=== PATIENT | female | born 1965 | race Caucasian/White ===

== ENCOUNTER 2022-05-17 13:07 | Emergency (ER) | payer BC, SELFPAY ==
--- NOTE | ~2022-05-17 | US_ITS ---
EXAMINATION: US pelvic complete w TV DATE: 05/17/2022 15:33 INDICATION: perimeno, abml bleeding, Hx of fibroids, LLQ pain TECHNIQUE: Multiple transabdominal and endovaginal sonographic images of the pelvis were obtained. COMPARISON: None. FINDINGS: Uterus: 9 x 6.6 x 5.3 cm. Endometrial complex measures 0.4 cm. Multiple small uterine fibroids, the l argest measures 1.6 cm. Right Ovary: 1.9 x 0.9 x 1.1 cm. Vascular flow is present. Left Ovary: 3.8 x 3.6 x 2.5 cm. Vascular flow is present. 2.8 cm simple cyst. There is no free fluid in the pelvis. IMPRESSION: 1. Multiple small uterine fibroids. 2. 2.8 cm simple left ovarian cyst. Reviewed, dictated and finalized at location K.
[2022-05-17 13:21] VITALS: BP 121/71; PULSE 88; RESP 20; TEMP 36.2; O2SAT 99
[2022-05-17 14:42] LABS: Appearance Urine Slightly Cloudy (Clear); Basophils Percent Auto 0.6 % (0.2-1.2); Bilirubin Urine Negative (Negative); Blood Urine 3+ (Negative); Color Urine Yellow (Yellow); Eosinophils Absolute Auto 0.2 K/mm3 (0-0.3); Eosinophils Percent Auto 2.9 % (0-4.4); Glucose Urine UA Negative (Negative); Hematocrit 36.8 % (37.0-47.0); Hemoglobin 12.4 g/dL (12.0-15.0); Immature Granulocyte Absolute 0.01 K/mm3 (0.00-0.031); Immature Granulocyte Percent A 0.1 % (0-0.5); Ketones Urine Negative (Negative); Leukocyte Esterase Ur 1+ LEU/UL (Negative); Lymphocytes Absolute Auto 1.54 K/mm3 (0.9-3.2); Mean Corpuscular HGB Conc 33.7 g/dl (32-36); Mean Corpuscular Hemoglobin 31.2 pg (26-34); Mean Corpuscular Volume 92.7 fl (80-100); Mean Platelet Volume 10.6 fl (7.4-10.4); Monocytes Absolute Auto 0.4 K/mm3 (0.1-0.6); Monocytes Percent Auto 5.8 % (2.6-8.5); Neutrophils Absolute Auto 4.8 K/mm3 (1.3-6.7); Neutrophils Percent Auto 68.6 % (45.5-73.1); Nitrate Urine Negative (Negative); Platelet Count Result 249 k/mm3 (150-375); Protein Urine 1+ mg/dL (Negative); Red Blood Count 3.97 M/mm3 (4.2-5.4); Red Cell Distribution Width 12.8 % (11.5-14.5); Specific Grav Ur >= 1.030 (1.001-1.035); Urobilinogen Urine 0.2 mg/dL (<2.0); pH Urine 5.5 (5.0-9.0)
--- NOTE | 2022-05-17 14:45 | ED.FEMALEGU ---
HPI - Female Genitourinary General Chief complaint: Vaginal Bleeding Stated complaint: heavy vag bleeding Time Seen by Provider: 05/17/22 14:07 Source: patient Mode of arrival: ambulatory Limitations: no limitations History of Present Illness HPI Narrative: Patient is a 56-year-old female who presents the ED with report of abnormal vaginal bleeding. Patient reports she is in the perimenopausal phase. She has been having irregular menstrual cycles. Last had a cycle around 04/01. Started having vaginal bleeding 2 days ago. Stated yesterday was heavy bleeding, going through a pad every 1-2 hours. She called her OBGYN and was Rx'd a 10 day course of Medroxyprogesterone. Patient only took 1 pill last night. Today, she thought the bleeding was improved, but she reported having a few clots after prolonged period of sitting. She then decided to come to the ED. Patient reports some cramping in left lower quadrant. Has not taken anything for pain. Denies any fever, nausea, vomiting, urinary symptoms. Review of Systems Review of Systems: CONSTITUTIONAL: Denies fever, chills, or sweats. CARDIOVASCULAR: Denies chest pain. RESPIRATORY: Denies dyspnea. GASTROINTESTINAL: Reports LLQ cramping. Denies nausea, vomiting. GENITOURINARY: Reports vaginal bleeding with clots. Denies dysuria or hematuria. All systems reviewed & are unremarkable except as noted in HPI and below PMFSH Past Medical History Medical History Anxiety GERD (gastroesophageal reflux disease) Surgical History Surgical History (Updated 05/17/22 @ 14:54 by Mae Saldivar PA-C) No pertinent past surgical history Social History Social History (Updated 05/17/22 @ 14:54 by Mae Saldivar PA-C) Smoking status: Never smoker Exam Narrative: GENERAL: Well appearing, well-nourished, non-toxic, in no acute distress. HEAD: Normocephalic, atraumatic. NECK: Supple. No adenopathy, no masses. RESPIRATORY: Airway patent, respirations nonlabored. Clear to auscultation bilaterally, no rales, rhonchi, wheezing. CARDIOVASCULAR: Regular rate and rhythm without murmurs, rubs, or gallops. Peripheral pulses 2+ and equal bilaterally. ABDOMINAL: Soft, minimal TTP in LLQ, nondistended, no hepatosplenomegaly. Normoactive BS. PELVIC: Normal external genitalia. Some dark red bleeding in vaginal vault, easily removable with long q-tips. No clots present. Normal cervix. No significant CMT. No signs of hemorrhage or pooling of fluid. MUSCULOSKELETAL: Moves all extremities. Strength/ROM intact without gross deformities. SKIN: Warm, dry, normal color. No rashes. NEURO: A&O X3. Speech clear. Cranial nerves II-XII grossly intact. Steady gait. No ataxic movements. PSYCHIATRIC: Appropriate mood and affect. Normal interaction. Course Vital Signs Vital signs: Vital Signs Temperature 97.1 F L 05/17/22 13:21 Pulse Rate 88 05/17/22 13:21 Respiratory Rate 20 05/17/22 13:21 Blood Pressure 121/71 05/17/22 13:21 Pulse Oximetry 99 05/17/22 13:21 Oxygen Delivery Room Air 05/17/22 13:21 Temperature 97.1 F L 05/17/22 13:21 Pulse Rate 88 05/17/22 13:21 Respiratory Rate 20 05/17/22 13:21 Blood Pressure 121/71 05/17/22 13:21 Pulse Oximetry 99 05/17/22 13:21 Oxygen Delivery Room Air 05/17/22 13:21 MDM - Female Genitourinary MDM Narrative Medical decision making narrative: Patient presented to ED with heavy vaginal bleeding. Perimenopausal. Started on medroxyprogesterone yesterday by [employer]. Vital signs stable upon arrival and throughout ED stay. Hemoglobin stable at 12.4. No records to compare to. Laboratory evaluation otherwise unremarkable. UA with blood and only 7-9 WBC. Likely more contamination than infection. Patient without urinary symptoms. Culture will be sent. Ultrasound showing small fibroids and a left ovarian cyst. Pelvic exam revealed some dark red bleeding, but no pooling of blood. No signs of
[2022-05-17 14:48] LABS: RBC Urine >75 /hpf (0-2); Squamous Epithelial Cell Urine Few /hpf (Few)
[2022-05-17 14:50] LABS: Add Urine Microscopic? YES
[2022-05-17 14:51] LABS: Alanine Aminotransferase 25 U/L (6-35); Albumin Level 4.1 g/dL (3.5-5.1); Alkaline Phosphatase 86 U/L (38-126); Anion Gap 6 mmol/L (8-16); Aspartate Amino Transferase 24 U/L (14-36); Bilirubin,Total 0.3 mg/dL (0.2-1.3); Blood Urea Nitrogen 13 mg/dL (7-17); Calcium 9.1 mg/dL (8.4-10.2); Carbon Dioxide 28 mmol/L (22-30); Chloride 101 mmol/L (98-107); Estimated CRCL calculation 69 ml/min; Estimated Glomerular Filt Rate > 60; Glucose 117 mg/dL (65-110); Sodium 135 mmol/L (137-145)
== END 2022-05-17 17:24 | disposition home or self-care (01) ==
PROVIDERS: Physician Assistant; Emergency Provider Emergency Medicine; PCP Family Medicine
DX: N93.8 Other specified abnormal uterine and vaginal bleeding (principal); K21.9 Gastro-esophageal reflux disease without esophagitis; N83.292 Other ovarian cyst, left side; D25.9 Leiomyoma of uterus, unspecified
CPT/HCPCS: 36415; 76830; 76856; 80053; 81001; 85025; 87086; 87088; 87147; 99284

== ENCOUNTER 2022-05-28 01:27 | Day surgery (SDC) | payer BC, SELFPAY ==
[2022-05-26 15:03] VITALS: BMI 28.3
--- NOTE | 2022-05-26 15:04 | PC.NURSE ---
Report to the Outpatient Waiting Room, entrance under the green pavilion located off [facility], at time _1100_ on date _[id number]_. OR Time: _1pm_. - You and your visitor will be asked to self-screen and do not enter if you have any COVID symptoms. - Only one visitor and NO children visitors are allowed at this time. - The patient visitor is requested to leave or wait in car when not with patient due to restrictions. - A mask is required within the hospital. Patients may have clear liquids (water, carbonated beverages, clear teas, apple juice) until 3 hours prior to surgery with a maximum of 20 ounces. - No food from midnight until time of surgery Take the following medications with a SIP of water the morning of surgery: ____Escitalopram Medications to discontinue per physician ___None Date to take last dose Please no make-up, nail thai, hairspray, perfume, deodorant, or body powder the day of surgery. No jewelry (including any body piercings) or valuables the day of surgery, leave them at home. Please take a shower or bath the night before, or the morning of, surgery with an antibacterial soap. Wear comfortable, loose fitting clothing. - Jewelry must be removed prior to entering the operating room. Rings and piercings that are not removed may be cut off. - The hospital will not accept responsibility for valuables. - Please leave all valuables, including medications, at home the day of surgery. If you are going home after surgery, a licensed local bulk driver must drive you home. - NO public transportation without another adult. - We recommend that an adult stay with you for 24 hours following discharge. - We also recommend that you do not drive, make important decision, drink alcoholic beverages, or take any drugs that were not prescribed by your health care provider for at least 24 hours after your discharge time. Follow any additional instructions given to you from your surgeon. If you or anyone in your household have experienced Covid symptoms in the past week, please notify your surgeon or the nurse liaison at the phone number below for possible testing. Telephone instructions given to ___Patient and asked if any additional questions and then verbalized understanding. Patient advised to call surgeon office or pre surgery nurse liaison [phone] if any additional questions.
--- NOTE | 2022-05-27 17:05 | PM.IMHP ---
H&P: HPI History of Present Illness Date/Time: 05/27/22 17:05 56-year-old 2 para 1999 female presents for treatment of vaginal bleeding. States that her cycles have been irregular over the last year and over the past 2 months has had very heavy bleeding cramping clotting worsening over the past 2 weeks. She has been seen in the emergency room ultrasound revealed small fibroids though no other specific abnormalities were appreciated on ultrasound. Previous physician had placed her on Provera 20mg daily which has helped decrease the bleeding somewhat though it does persist. Also with a significant amount of cramping and discomfort with the bleeding. Presents today for hysteroscopic exam tissue sampling and endometrial ablation. Has had a tubal ligation in the past so this does not need to be performed today. 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 GERD (gastroesophageal reflux disease) High cholesterol Surgical History Surgical History H/O sinus surgery H/O tubal ligation History of appendectomy History of gynecological procedure left ovarian cystectomy No pertinent past surgical history Family History Family History Mother Acute myocardial infarction Sibling Acute myocardial infarction Father Heart disease Parkinson disease Social History Social History Smoking status: Never smoker Alcohol intake: current Drinks per week: 4 Alcohol use details: socially Substance use: never Substance use type: does not use Additional living arrangements comments: Additional occupation/education comments: program tech Gender identity (if verbalized by the patient): Female Sexual Orientation (if Verbalized by the Patient): Straight or Heterosexual Spiritual care concerns: No Meds Home Medications and Allergies Home Medications Medication Instructions Recorded Confirmed Type atorvastatin 20 mg tablet 20 mg PO DAILY 05/26/22 05/26/22 History celecoxib 100 mg capsule (Celebrex) 100 mg PO BID 05/26/22 05/26/22 History escitalopram oxalate 20 mg tablet 20 mg PO DAILY 05/26/22 05/26/22 History (Lexapro) medroxyprogesterone 10 mg tablet 20 mg PO DAILY #20 tabs 05/26/22 Rx pantoprazole 40 mg tablet,delayed 40 mg PO QAM 05/26/22 05/26/22 History release Allergies Allergy/AdvReac Type Severity Reaction Status Date / Time ciprofloxacin [From Cipro] AdvReac Intermediate Nausea Verified 05/26/22 14:51 Exam Const: General: cooperative, healthy appearing and comfortable Resp: Effort & Inspection: normal respiratory effort Auscultation: clear to auscultation bilaterally Cardio: Rate: regular rate Rhythm: regular rhythm GI: Inspection: normal to inspection Auscultation: normal bowel sounds : Speculum Exam - Vagina: vaginal bleeding Speculum Exam - Cervix: normal appearance of the cervix Bimanual exam- vagina & uterus: enlarged ( 8-10 week size) and Uterine tenderness Bimanual Exam- Adnexa, other: normal adnexae Assessment and Plan Assessment and plan (1) Menometrorrhagia: Code(s): N92.1 - Excessive and frequent menstruation with irregular cycle Status: Acute Assessment and Plan: 1. Hysteroscopy with uterine curettings 2. Endometrial ablation (2) Fibroid uterus: Code(s): D25.9 - Leiomyoma of uterus, unspecified Status: Acute
[2022-05-28 09:35] VITALS: BP 138/76; PULSE 73; RESP 20; TEMP 36; O2SAT 100
[2022-05-28] MEDS: ACETAMINOPHEN 500 MG TABLET 1000 MG PO (09:42)
[2022-05-28] MEDS: LACTATED RINGERS 1,000 ML 30 ML IV CONT (10:00)
--- NOTE | 2022-05-28 10:54 | WPDHPUPDATE1 ---
History and Physical Update Update Date/Time: 05/28/22 10:54 History and Physical has been reviewed, including an updated exam of the patient. There are NO changes in the patient's condition. Risks, benefits, and alternatives have been discussed and questions answered. Patient agrees to proceed with procedure.
--- NOTE | 2022-05-28 11:42 | WPDANESEPPF ---
Anes - Initial Pre Proc Eval Procedure: Operation Date: 05/28/22 11:30 Proposed Procedures p Hysteroscopy, Dilation and Curettage, Sofya Endometrial Ablation - Tung Jones MD Date/Time: 05/28/22 11:42 Surgeon: Tung Jones MD Pre Op Diagnosis: menometrorrhagia Patient Data Age: 56 Gender: F Height: 1.63 m Weight: 74.5 kg Last Vital Signs Temp 36.0 C L 05/28/22 09:35 Pulse 73 05/28/22 09:35 Resp 20 05/28/22 09:35 BP 138/76 05/28/22 09:35 Pulse Ox 100 05/28/22 09:35 O2 Del Method Room Air 05/28/22 09:35 Allergies Allergy/AdvReac Type Severity Reaction Status Date / Time ciprofloxacin [From Cipro] AdvReac Intermediate Nausea/Rapid Verified 05/28/22 09:37 heart rate Home Medications Medication Instructions Recorded Confirmed Type atorvastatin 20 mg tablet 20 mg PO DAILY 05/26/22 05/28/22 History celecoxib 100 mg capsule (Celebrex) 100 mg PO BID 05/26/22 05/28/22 History escitalopram oxalate 20 mg tablet 20 mg PO DAILY 05/26/22 05/28/22 History (Lexapro) medroxyprogesterone 10 mg tablet 20 mg PO DAILY #20 tabs 05/26/22 Rx pantoprazole 40 mg tablet,delayed 40 mg PO QAM 05/26/22 05/28/22 History release Patient hx anesthesia problems: none Family hx anesthesia problems: none Results Review: All pre-operative results and documents have been reviewed as part of the pre-operative evaluation. 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 GERD (gastroesophageal reflux disease) High cholesterol Surgical History Surgical History H/O sinus surgery H/O tubal ligation History of appendectomy History of gynecological procedure left ovarian cystectomy No pertinent past surgical history Family History Family History Mother Acute myocardial infarction Sibling Acute myocardial infarction Father Heart disease Parkinson disease Social History Social History Smoking status: Never smoker Alcohol intake: current Drinks per week: 4 Alcohol use details: socially Substance use: never Substance use type: does not use Living arrangements: with family Additional living arrangements comments: Additional occupation/education comments: program tech Gender identity (if verbalized by the patient): Female Sexual Orientation (if Verbalized by the Patient): Straight or Heterosexual Spiritual care concerns: No Anes - Eval Final PreProcedure Day of Procedure 05/28/22 11:42 Patient weight: overweight Heart: regular rate and rhythm Lungs: clear to auscultation Airway: Mallampati scale class II Neurological: alert and oriented Last oral intake: >/= 8 hours ASA classification: II Emergent: no Anesthetic plan: proceed Anesthesia type and monitoring: general GIVS and standard monitoring Results Review: All pre-operative results and documents have been reviewed as part of the pre-operative evaluation. Informed Consent: The patient's anesthetic plan and its attendant risks and benefits were discussed with the patient/family/POA. Questions were solicited and answers provided to the satisfaction of the patient/family/POA.
[2022-05-28] MEDS: ceFAZolin 2 GM/D5W 50 ML 2 GM/50 ML BAG IVPB (13:08)
[2022-05-28] MEDS: LIDOCAINE HCL 1% PF 30 ML VIAL 10 ML INFILTRATE (13:35)
--- NOTE | 2022-05-28 13:40 | W.PM.PROC2 ---
Procedure Note - Detailed Date of Procedure 05/28/22 Pre-op Diagnosis menometrorrhagia Post-op Diagnosis Same Procedure Performed 1. Hysteroscopy with uterine curettings 2. Endometrial ablation Surgeon Tung Jones MD Anesthesia MAC Findings Slightly thickened endometrial cavity. No fibroid in the endometrial cavity. Description of Procedure Patient prepped draped usual manner for this procedure. Cervix was dilated to allow the hysteroscope to place reveals findings as noted above. Curettings were obtained in the endometrial instrument was placed cavity assessment performed and instrument activated. At the end of the cycle hysteroscope again revealed good destruction. Patient was then sent to recovery room in stable condition. Estimated Blood Loss 10 Drains No Packing No Pathology Yes Complications No immediate complications Condition Stable Disposition PACU [facility] Billing Surgery - Charge Forward: Surgery Billing
[2022-05-28 13:44] VITALS: BP 132/88; PULSE 81; RESP 12; O2SAT 100
[2022-05-28] MEDS: fentaNYL CITRATE INJ (*CRX) 100 MCG/2 ML VIAL 25 MCG IV PUSH ×4 (14:08→14:32)
[2022-05-28 14:10] VITALS: BP 117/66; PULSE 66; RESP 14; O2SAT 100
[2022-05-28] MEDS: oxyCODONE HCL (*CRX) 5 MG TAB IR PO (14:20)
[2022-05-28 14:35] VITALS: BP 119/66; PULSE 61; RESP 14; O2SAT 100
[2022-05-28 15:05] VITALS: BP 117/65; PULSE 67; RESP 16; O2SAT 97
== END 2022-05-28 15:15 | disposition home or self-care (01) ==
PROVIDERS: PCP Family Medicine; Visit Provider Obstetrics & Gynecology
PROC: 0U5B8ZZ Destruction of Endometrium, Via Natural or Artificial Opening Endoscopic (ICD-10-PCS; CPT 58563; principal; 2022-05-28 11:30)
DX: N92.1 Excessive and frequent menstruation with irregular cycle (principal); D25.9 Leiomyoma of uterus, unspecified; E78.00 Pure hypercholesterolemia, unspecified; K21.9 Gastro-esophageal reflux disease without esophagitis; F41.9 Anxiety disorder, unspecified
CPT/HCPCS: 58563; 88305; A9270; J0690; J2250; J3010; J7120

== ENCOUNTER 2023-01-13 09:29 | Outpatient (CLI) | payer BC, SELFPAY ==
--- NOTE | ~2023-01-13 | US_ITS ---
EXAMINATION: US abdomen complete DATE: 01/13/2023 09:58 INDICATION: RUQ pain and RLQ pain TECHNIQUE: Multiple grayscale and Doppler ultrasound images of the abdomen were obtained. COMPARISON: None available. FINDINGS: The visualized portions of the pancreas are normal. The liver is normal size with increased echogenicity and normal echotexture. No surface nodularity. Normal hepatopetal flow in the main port al vein. The gallbladder is normal with no abnormal wall thickening, pericholecystic fluid or stones. The common bile duct measures 2 mm. There was no sonographic Shah sign. The visualized portions of the aorta and inferior vena cava are normal. The right kidney measures 9.3 x 3.9 x 4.1 cm. The left kidney measures 11.8 x 5.2 x 4.8 cm. The kidne ys demonstrate normal parenchymal echogenicity. 1.2 and 1.1 cm circumscribed echogenic foci in the ri ght superior and right inferior renal poles, respectively. There is no hydronephrosis. The spleen is normal in appearance and measures cm. IMPRESSION: 1. Echogenic liver, most commonly due to steatosis but also can be seen with hepatitis and fibrosis. 2. 1.2 and 1.1 cm echogenic right renal lesions, recommend renal CT or MR for further evaluation. Reviewed, dictated and finalized at location K. IMPRESSION: 1. Echogenic liver, most commonly due to steatosis but also can be seen with he patitis and fibrosis. 2. 1.2 and 1.1 cm echogenic right renal lesions, recommend renal CT or MR for f urther evaluation.
== END 2023-01-13 09:30 | disposition home or self-care (01) ==
PROVIDERS: PCP Family Medicine; Visit Provider Nurse Practitioner
DX: K21.9 Gastro-esophageal reflux disease without esophagitis (principal); R10.31 Right lower quadrant pain; R10.11 Right upper quadrant pain
CPT/HCPCS: 76700

== ENCOUNTER 2023-01-28 09:26 | Outpatient (CLI) | payer BC, SELFPAY ==
--- NOTE | ~2023-01-28 | MR_ITS ---
MRI of the abdomen: Clinical indication: Renal lesions. Technique: Coronal SSFSE ARC, WATER:coronal LAVA-FLEX, Coronal 2D FIESTA FatSat, Axial SSFSE BH ARC, Axial 3D DualEcho BH, Axial SSFSE-IR, Axial DWI b=500, Axial 2D FIESTA FatSat, pre and dynamic postco ntrast Axial LAVA ARC, postcontrast Coronal In and Opposed phase LAVA FLEX. Following intravenous adm inistration of 15 cc MultiHance gadolinium, T1-weighted fat-sat imaging was performed in the axial an d coronal planes. Findings: Multiple gallstones are noted. The common bile duct is normal in course and caliber. No fi lling defects are seen within the CBD. No evidence of intrahepatic biliary ductal dilatation. The [place] creatic duct is normal in size. Liver, spleen, pancreas, and adrenal glands appear normal. Tiny bilateral nonenhancing renal cysts ar e present. The aorta and the paraaortic regions appear normal. Impression: Tiny nonenhancing bilateral renal cysts. No other renal abnormality identified. Reviewed, dictated and finalized at location M. Impression: Tiny nonenhancing bilateral renal cysts. No other renal abnormality identified.
== END 2023-01-28 09:27 | disposition home or self-care (01) ==
PROVIDERS: PCP Family Medicine; Visit Provider Nurse Practitioner
DX: N28.9 Disorder of kidney and ureter, unspecified (principal); N28.1 Cyst of kidney, acquired
CPT/HCPCS: 74183; A9577

== ENCOUNTER 2023-02-11 15:04 | Outpatient (CLI) | payer BC, SELFPAY ==
--- NOTE | 2023-02-11 15:30 | ECG_ITS ---
Measurements Intervals [place] Rate: 75 P: 0 GA: 137 QRS: 59 QRSD: 81 T: 19 QT: 383 QTc: 429 Interpretive Statements SINUS RHYTHM BASELINE WANDER- V4-V6 NORMAL ECG NO PREVIOUS ECG AVAILABLE FOR COMPARISON Electronically Signed On 02-11-2023 15:36:09 CDT by Chauncey Cardozo D.O.
[2023-02-11 15:48] LABS: Alanine Aminotransferase 32 U/L (6-35); Albumin Level 4.2 g/dL (3.5-5.1); Alkaline Phosphatase 119 U/L (38-126); Amylase 69 U/L (30-110); Aspartate Amino Transferase 26 U/L (14-36); Bilirubin,Total 0.5 mg/dL (0.2-1.3); Lipase 88 U/L (23-300)
== END 2023-02-11 15:05 | disposition home or self-care (01) ==
LOC: ANHSURGERY 15:09
PROVIDERS: PCP Family Medicine; Visit Provider Surgery
DX: Z01.812 Encounter for preprocedural laboratory examination (principal); Z01.810 Encounter for preprocedural cardiovascular examination; K80.20 Calculus of gallbladder without cholecystitis without obstruction; E78.00 Pure hypercholesterolemia, unspecified
CPT/HCPCS: 36415; 80076; 82150; 83690; 86850; 86900; 86901; 93005

== ENCOUNTER 2023-02-16 00:12 | Day surgery (SDC) | payer BC, SELFPAY ==
[2023-02-10 09:31] VITALS: BMI 29.2
--- NOTE | 2023-02-10 09:38 | PC.NURSE ---
Report to the Outpatient Waiting Room, entrance under the green pavilion located off [facility], at time 12:30 on date 02/16/23. Planned Procedure Time: 2:30. Time changes happen often and if your time is changed the preop area will call you the afternoon before. - You and your visitor will be asked to self-screen and do not enter if you have any COVID symptoms. - A mask is optional within the hospital at this time. Patients may have clear liquids (water, carbonated beverages, clear teas, apple juice) until 3 hours prior to surgery with a maximum of 20 ounces. - No food from midnight until time of surgery Take the following medications with a SIP of water the morning of surgery: LEXAPRO DO NOT STOP ANY OF YOUR OTHER PRESCRIPTION MEDICATIONS PRIOR TO SURGERY?EXCEPT THE FOLLOWING Medications to discontinue per physician: N/A Date to take last dose: N/A Please no make-up, nail [place], hairspray, perfume, deodorant, or body powder the day of surgery. No jewelry (including any body piercings) or valuables the day of surgery, leave them at home. Please take a shower or bath the night before, or the morning of, surgery with an antibacterial soap (HIBICLENS). Wear comfortable, loose fitting clothing. - Jewelry must be removed prior to entering the operating room. Rings and piercings that are not removed may be cut off. - The hospital will not accept responsibility for valuables. - Please leave all valuables, including medications, at home the day of surgery. If you are going home after surgery, a licensed school bus driver must drive you home. - NO public transportation without another adult if you receive anesthesia. - We recommend that an adult stay with you for 24 hours following discharge. - We also recommend that you do not drive, make important decision, drink alcoholic beverages, or take any drugs that were not prescribed by your health care provider for at least 24 hours after your discharge time. Follow any additional instructions given to you from your surgeon. If you or anyone in your household have experienced Covid symptoms in the past week, please notify your surgeon or the nurse liaison at the phone number below for possible testing. Telephone instructions given to [employer] and asked if any additional questions and then verbalized understanding. Patient advised to call surgeon office or pre surgery nurse liaison [phone] if any additional questions.
[2023-02-16] VITALS (9 sets, daily range): BP systolic 129–143; BP diastolic 69–88; PULSE 56–91; RESP 10–18; TEMP 36.1–36.6; O2SAT 96–100
[2023-02-16] MEDS: LACTATED RINGERS 1,000 ML 30 ML IV CONT ×2 (10:00→12:52)
--- NOTE | 2023-02-16 10:21 | WPDANESEPPF ---
Anes - Initial Pre Proc Eval Procedure: Operation Date: 02/16/23 11:30 Proposed Procedures p Laparoscopic Cholecystectomy with Possible Open - Moiz Araya DO Date/Time: 02/16/23 10:21 Surgeon: Moiz Araya DO Pre Op Diagnosis: Symptomatic Cholelithiasis Patient Data Age: 57 Gender: F Height: 1.63 m Weight: 77.15 kg Allergies Allergy/AdvReac Type Severity Reaction Status Date / Time ciprofloxacin [From Cipro] AdvReac Intermediate Nausea/Rapid Verified 02/10/23 09:31 heart rate Home Medications Medication Instructions Recorded Confirmed Type atorvastatin 20 mg tablet 20 mg PO DAILY 05/26/22 02/10/23 History escitalopram oxalate 20 mg tablet 20 mg PO DAILY 05/26/22 02/10/23 History (Lexapro) pantoprazole 40 mg tablet,delayed 40 mg PO QAM 05/26/22 02/10/23 History release fluconazole 150 mg tablet 150 mg PO ONCE #1 tablet 02/05/23 02/10/23 Rx (Diflucan) pseudoephedrine HCl 30 mg tablet 30 mg PO Q4-6H PRN Allergy Symptoms 02/10/23 02/10/23 History (Sudafed) Patient hx anesthesia problems: none Family hx anesthesia problems: none Results Review: All pre-operative results and documents have been reviewed as part of the pre-operative evaluation. [facility] Past Medical History Medical History Anxiety Arthritis Benign tumor Cholelithiasis Colon cancer screening Erosion of bladder suspension mesh Gallbladder attack GERD (gastroesophageal reflux disease) Hepatic steatosis Hiatal hernia High cholesterol Kidney cysts Kidney stones Obesity Renal lesion RLQ abdominal pain RUQ pain Screening mammogram, encounter for Seizure Surgical History Surgical History (Updated 02/16/23 @ 10:22 by Attila Sanchez MD) H/O sinus surgery H/O tubal ligation History of appendectomy History of bladder suspension procedure History of gynecological procedure left ovarian cystectomy History of hysteroscopy (05/28/22) Hscope D&C / Ablation ; Benign S/P carpal tunnel release S/P foot surgery Family History Family History Mother Acute myocardial infarction Sibling Acute myocardial infarction Father Heart disease Parkinson disease Social History Social History Smoking status: Never smoker Alcohol intake: current Drinks per week: 5 Alcohol use details: socially Substance use: never Substance use type: does not use Living arrangements: with family Additional living arrangements comments: 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 Gender identity (if verbalized by the patient): Female Sexual Orientation (if Verbalized by the Patient): Straight or Heterosexual Spiritual care concerns: No Anes - Eval Final PreProcedure Day of Procedure 02/16/23 10:21 Patient weight: overweight Heart: regular rate and rhythm Lungs: clear to auscultation Airway: Mallampati scale class II Neurological: alert and oriented Last oral intake: >/= 8 hours ASA classification: II Emergent: no Anesthetic plan: proceed Anesthesia type and monitoring: general ETT and standard monitoring Results Review: All pre-operative results and documents have been reviewed as part of the pre-operative evaluation. Informed Consent: The patient's anesthetic plan and its attendant risks and benefits were discussed with the patient/family/POA. Questions were solicited and answers provided to the satisfaction of the patient/family/POA.
[2023-02-16] MEDS: KETOROLAC 15 MG/ML VIAL (*BKC) IV PUSH (10:50)
[2023-02-16] MEDS: ACETAMINOPHEN 500 MG TABLET 1000 MG PO (10:50)
--- NOTE | 2023-02-16 11:18 | WPDHPUPDATE1 ---
History and Physical Update Update Date/Time: 02/16/23 11:18 History and Physical has been reviewed, including an updated exam of the patient. There are NO changes in the patient's condition. Risks, benefits, and alternatives have been discussed and questions answered. Patient agrees to proceed with procedure.
[2023-02-16] MEDS: ceFAZolin 2 GM/D5W 50 ML 2 GM/50 ML BAG IVPB (11:36)
[2023-02-16] MEDS: BUPIVACAINE/EPINEPHRINE 0.5% 50 ML VIAL 30 ML INFILTRATE (12:11)
--- NOTE | 2023-02-16 12:20 | W.PM.PROC2 ---
Procedure Note - Detailed Date of Procedure 02/16/23 Pre-op Diagnosis Symptomatic Cholelithiasis Post-op Diagnosis Same Procedure Performed Laparoscopic Cholecystectomy Surgeon Moiz Araya, DO Anesthesia General and Local (0.5% bupivacaine) Indications This is a 57-year-old woman who presented with episodes of right upper quadrant pain over the past 3 months. She has had these pains after eating fried or fatty foods. She had a HIDA scan and ultrasound that were normal, but then she had an abdominal MRI which showed evidence of cholelithiasis. Discussions were then made with the patient about treatment options and decision was made to proceed with laparoscopic cholecystectomy, possible open. Findings Laparoscopic cholecystectomy was performed. The gallbladder appeared normal in size and had no evidence of pericholecystic adhesions. The cystic duct appeared normal in size as well. I could not palpate any stones within the gallbladder once it was removed, but there could have been very small granular stones within the bile. The gallbladder was removed and sent to the lab for pathology. Description of Procedure Procedure as well as risks, benefits, and alternatives were discussed with patient. Written consent was obtained and placed in chart prior to procedure. The patient was brought back to surgical suite. Patient was placed in supine position on operating table. Time-out was done to confirm patient and procedure. Patient was then intubated by the anesthesia department. Abdomen was prepped and draped in sterile fashion using chlorhexidine prep. 0.5% bupivacaine with epinephrine was infiltrated at each site of incision. A 5 millimeter incision was made near the umbilicus, and a 5 millimeter Optiview trocar was advanced through the abdominal layers under direct visualization. Once inside the abdominal cavity, carbon dioxide was insufflated to create a pneumoperitoneum. The camera was inserted and the abdomen was inspected. No immediate abnormalities were identified. The patient was placed in reverse Trendelenburg position and rotated slightly to the left. An 11 millimeter incision was made in the subxiphoid region, and an 11 millimeter trocar was inserted under direct visualization. Two 5 millimeter incisions were made in the right upper quadrant, and two 5 millimeter trocars were inserted under direct visualization. The gallbladder was identified and grasped at the fundus and retracted superiorly. It was then grasped at the infundibulum retracted laterally. Careful dissection around the neck of the gallbladder was performed using blunt dissection with a [place] grasper and hook electrocautery. The cystic duct was identified, and a window was created behind it. The cystic artery was also identified and a window was created behind it. The critical view of safety was identified, visualizing the cystic duct running directly into the neck of the gallbladder, and the cystic artery running directly into the wall of the gallbladder. A 5 millimeter clip turbine engineer was then used to place 2 clips proximally and 1 clip distally on both the cystic duct and cystic artery. They were then both transected using endoscopic scissors. Once safely away from the annie hepatitis, the gallbladder was dissected free from the liver bed using hook electrocautery. Hemostasis was achieved along the way. The gallbladder was removed completely and then removed through the subxiphoid port. The liver bed was then inspected. Hemostasis appeared adequate, and our clips appeared secure. The area was gently irrigated with sterile saline. No other abnormalities were seen. The patient was flattened out in bed, and 1 final inspection was made around the abdominal cavity. The subxiphoid port was removed, and a Richard Jonas cone was used to approximate the fascia with an 0-Vicryl simple interrupted suture. The remaining ports were then removed under direct visualization, the ca
== END 2023-02-16 14:34 | disposition home or self-care (01) ==
PROVIDERS: PCP Family Medicine; Visit Provider Surgery
PROC: 0FT44ZZ Resection of Gallbladder, Percutaneous Endoscopic Approach (ICD-10-PCS; CPT 47562; principal; 2023-02-16 11:30)
DX: K81.1 Chronic cholecystitis (principal); K21.9 Gastro-esophageal reflux disease without esophagitis; F41.9 Anxiety disorder, unspecified; E78.00 Pure hypercholesterolemia, unspecified
CPT/HCPCS: 47562; 88304; A9270; J0690; J1100; J1170; J1885; J2250; J2405; J2704; J2710; J3010; J7030; J7120

== ENCOUNTER 2024-12-29 16:14 | Outpatient (CLI) | payer BC, SELFPAY ==
--- NOTE | ~2024-12-29 | XR_ITS ---
HISTORY: M25.531 - Pain in right wrist since Sep. radial side COMPARISON: None TECHNIQUE: 3 views of the right wrist were performed. FINDINGS: No acute fracture is identified. The carpal arcs are intact. Mild radiocarpal joint space narrowing with sclerosis of the distal radius is present. Degenerative disease is identified within the first carpometacarpal joint space, a pattern suggesting osteoarthritis. Periarticular osteopenia is also noted, also suggestive of osteoarthritis. Remaining bones mineralization is age-appropriate. No significant soft tissue swelling is noted. No radiopaque foreign body is identified. IMPRESSION: Degenerative disease, without acute fracture. Reviewed, dictated and finalized at location A.
--- OUTSIDE RECORDS SUMMARY | 2024-12-29 16:20 | XMS_ITS | Encounter Summary ---
Author Organization [facility] Address [facility] [place] [address] Care Team Providers Care Line Runner Name Role Phone Miguel Angel Simons MD Primary Care Provider [phone] Angela Montoya MD Unavailable Unavailabl Jesus Jennings MD Unavailable [phone] Tung Jones MD Primary Care Provider [phone] Elpidio Josue MD Unavailable [phone] Encounter Details Date Type Department Care Team (Late Contact Info) Description 03/19/2019 Abstract SFL CONVERSION [address] [place] [address] , Generic Conversion, Social History Tobacco Use Types Packs/Day Years Used Date Smoking Tobacco: Never Assessed Comments Unknown Sex and Gender Information Value Date Recorded Sex Assigned at Not on file Legal Sex Female 11:16 PM COMMUNITY CASE MANAGER Gender Identity Not on file Sexual Orientation Not on file documented as of this encounter Plan of Treatment Upcoming Encounters Date Type Department Care Team (Late Contact Info) Description 01/24/2025 11:45 AM CDT Office Visit [facility] [address] [place] [id number] Elpidio Josue MD [address] [facility] [address] [place] [address] documented as of this encounter Visit Diagnoses Not on filedocumented in this encounter Additional Health Concerns Infection Onset Date Last Indicated Resolved Time COVID-19 Rule Out 11/15/2021 11/15/2021 11/15/2021 7:19 PM COMMUNITY CASE MANAGER documented as of this encounter Care Teams Line Runner Relationship Specialty Start Date End Date Miguel Angel Simons MD [address] [place] [address] PCP - General FAMILY PRACTICE 12/29/17 04/26/24 Tung Jones MD [address] [facility] [address] [place], [place] [id number] PCP - General OBGYN 04/27/24 Angela Montoya MD [address] [place] [address] [place] Embryology Teacher CARDIOVASCULAR DISEASE 11/29/21 11/10/24 Jesus Devi MD [address] [place] [address] INTERVENTIONAL CARDIOLOGY 12/30/23 12/16/24 Elipdio Josue MD [address] [facility] [address] [place] [address] Physician INTERVENTIONAL CARDIOLOGY 12/16/24 documented as of this encounter
--- OUTSIDE RECORDS SUMMARY | 2024-12-29 16:20 | XMS_ITS | Clinical Summary ---
Author Organization [facility] Address [address] [place] [address] Care Team Providers Care Knot Tying Operator Name Role Phone Tung Jones MD Primary Care Provider [phone] Elpidio Josue MD Unavailable [phone] Allergies Active Allergy Reactions Criticality Noted Date Comments Ciprofloxacin Anaphylaxis High 05/21/2020 Medications escitalopram 20 MG tablet Take 1 tablet (20 mg total) by mouth daily. 11/10/2019 Active meclizine 25 MG tablet Take 1 tablet (25 mg total) by mouth 3 (three) times daily as needed. Active atorvastatin 20 MG tablet Take 1 tablet (20 mg total) by mouth nightly at bedtime. Active valACYclovir 1 g tablet Take 1 tablet (1,000 mg total) by mouth as needed. 07/30/2021 Active pantoprazole EC (PROTONIX) 40 MG tablet 09/08/2023 Active pseudoephedrine (SUDAFED) 30 MG tablet Take 1 tablet (30 mg total) by mouth every 4 (four) hours as needed for Congestion. Active Active Problems Problem Noted Date Diagnosed Date Difficult airway 11/05/2023 Lipoma of right upper extremity 09/30/2023 Abnormal stress test 07/22/2023 Chest pain 12/09/2021 Mixed hyperlipidemia 12/09/2021 GERD (gastroesophageal reflux disease) Encounters Date Type Department Care Team Description 11/11/2024 Telephone [facility] [address] [place] [phone] Jesus Devi MD Reschedule from Last 3 Months Family History Medical History Relation Comments Heart Disease Father Parkinson's Disease Father Blood clots Mother Heart Disease Mother Relation Status Comments Father Mother Social History Tobacco Use Types Packs/Day Years Used Date Smoking Tobacco: Never Smokeless Tobacco: Never Tobacco Cessation:Counseling Given: No Alcohol Use Standard Drinks/Week Comments Yes 0 (1 standard drink = 0.6 oz pur e alcohol) social Comments No Sex and Gender Information Value Date Recorded Sex Assigned at Not on file Legal Sex Female 11:16 PM COTTON JAMMER Gender Identity Not on file Sexual Orientation Not on file Last Filed Vital Signs Vital Sign Reading Time Taken Comments Blood Pressure 128/72 01/05/2024 2:00 PM CDT Pulse 89 01/05/2024 2:00 PM CDT Temperature 36.4 C (97.6 F) 11/18/2023 9:41 AM COTTON JAMMER Respiratory Rate 16 01/05/2024 2:00 PM CDT Oxygen Saturation 96% 01/05/2024 2:00 PM CDT Inhaled Oxygen Concentration - - Weight 80.4 kg (177 lb 3.2 oz) 01/05/2024 2:00 P M CDT Height 162.6 cm (5' 4 ) 01/05/2024 2:00 PM CDT Body Mass Index 30.42 01/05/2024 2:00 PM CDT Plan of Treatment Upcoming Encounters Date Type Department Care Team ([facility] st Contact Info) Description 01/24/2025 11:45 AM CDT Office Visit [facility] [place] [address] Elpidio Josue MD [address] [facility] [address] [place] [address] Health Maintenance Due Date Last Done Comments Cervical Cancer Screening Pap Smear (Age 30 to 64) Every 3 Years 1967 Colorectal Cancer Screening Colonoscopy (10 Years) 1967 Annual Physical 1970 Hepatitis C 1985 DTaP, Tdap and Td Vaccines (1 - Tdap) 1986 Hepatitis B Vaccines (1 of 3 - 19+ 3-dose series) 1986 Cervical Cancer Screening Pap with HPV Testing (Age 30 to 64) Every 5 Years 1997 Cervical Cancer Screening with HPV 1997 Zoster Vaccines (1 of 2) 2017 COVID-19 Vaccine ( - season) 2024 Influenza Adult (#1) 2024 PHQ-2 (Physician [place]) 10/12/2024 Mammogram Screening 05/18/2026 05/18/2024, 05/08/2023, 05/07/2022, Additional history exists Meningococcal B Vaccine Aged Out No l onger eligible based on patient's age to complete this topic Meningococcal Vaccine Aged Out No birgit ledy eligible based on patient's age to complete this topic Pneumococcal Vaccine: Pediatrics (0 to 5 Years) and At-Risk Patients (6 to 64 Years) Aged Out No longer eligible based on patient's age to complete this topic RSV Immunizations Under 20 Months Aged Out No longer eligible based on patient's age to complete this topic Procedures Procedure Name Priority Date/Time Associated Diagnosis Comments MG SCREENING W YAMINI FLACO DIGI Routine 05/18/2024 1:39 PM CDT Visit for screening mammogram from Last 3 Months or Most Recently Relevant to Health Maintenance Results * MG SCREENING W YAMINI FLACO DIGI (05/18/2024 1:39 PM CDT) Anatomical Region Laterality Modality Breast Bilateral Mammography 05/18/2024 3:06 PM CDT Impressions 05/18/2024 3:07 PM CDT IMPRESSION: No interval features to suggest malignancy. In the absence of clinical symptoms, return for annual screening mammogram due in 1 year. RECOMMENDATION: Routine Screening, Bilateral Mammogram in 1 year ASSESSMENT: ACR BI-RADS 1 - NEGATIVE Ordered By: TUNG JONES Interpreted By: López Long MD, 05/18/2024 3:06 PM Narrative 05/18/2024 3:07 PM CDT EXAMINATION: BILATERAL SCREENING MAMMOGRAPHY Exam Date: 05/18/2024 1:20 PM CLINICAL INDICATION: 58 years of age female routine screening. COMPARISON: Dating back to 12/30/2017 TECHNIQUE: Digital CC & MLO views. Tomosynthesis imaging acquisition Study read with the assistance of a computer-aided detection system. TISSUE DENSITY: There are scattered areas of fibroglandular density. FINDINGS: No suspicious grouping of microcalcifications, architectural distortion, or any suspicious nodule 3 dimensionally demonstrated in either breast. us Tung Jones MD MAMMO Final Result from Last 3 Months or Most Recently Relevant to Health Maintenance Insurance [facility] Care Teams Knot Tying Operator Relationship Specialty Start Date End Date Tung Jones MD [address] [facility] [address] [place] [address] PCP - General OBGYN 04/27/24 Elpidio Josue MD [address] [place] [address] Physician INTERVENTIONAL CARDIOLOGY 12/16/24
== END 2024-12-29 16:15 | disposition home or self-care (01) ==
LOC: CHSIMG 16:16
PROVIDERS: PCP Family Medicine; Visit Provider Orthopaedic Surgery
DX: M25.531 Pain in right wrist (principal)
CPT/HCPCS: 73110